=== PATIENT | female | born 1935 | race Caucasian/White ===

== ENCOUNTER → 2018-03-29 | Outpatient (CLI) | payer MEDICARE, OTHER ==
[~2018-03-29] MED LIST: ACTIGALL300 MG PO; ANTIVERT25 MG PO; ATENOLOL25 MG PO; CALCIUM + D SO1 EACH PO; CICLOPIROX6.6 ML TP; CLONAZEPAM0.5 MG PO; CRANBERRY TABL1 EACH PO; DECADRON1 MG PO; DECADRON2 MG PO; GINKGO BILOBA120 M1 PO; KEFLEX500 MG PO; LYRICA25 MG PO; MECLIZINE HCL25 MG PO; MIRALAX17 GM PO; OXYCODONE-ACET1 EACH PO; POLYETHYLENE GL17 GM PO; RED YEAST RICE600 M1 PO; RED YEAST RICE600 MG PO; TEGRETOL200 MG PO; TENORMIN25 MG PO; TOPIRAMATE25 MG PO; URSODIOL300 MG PO; VITAMIN B-650 M1 PO; VITAMIN B12-FO1 EACH PO; VITAMIN D31000 UNIT PO; ZOFRAN ODT4 MG PO; ZOLOFT50 MG PO
== END | disposition home or self-care (01) ==
LOC: CDC 11:30
DX: Z01.810 Encounter for preprocedural cardiovascular examination (principal); J98.4 Other disorders of lung; R94.31 Abnormal electrocardiogram [ECG] [EKG]
CPT/HCPCS: 93000

== ENCOUNTER 2018-05-01 23:14 | Inpatient (IN) | payer OTHER ==
[~2018-05-01] VITALS: Ht 157.5 cm; Wt 77.6 kg
[~2018-05-01 23:14] MED LIST changes: +CALCIUM 500 MG1 EACH PO; +CYANOCOBALAM1000 MCG PO
[2018-05-02 00:10] LABS: BASOPHIL (%) 0.3 % (0-1); EOSINOPHIL (%) 0.5 % (0-5); HEMATOCRIT 35.4 % (36.0-46.0); LYMPHOCYTE (%) 14.4 % (15-42); LYMPHOCYTE COUNT 0.9 K/uL (1.0-2.8); MCH 31.8 PG (29.0-34.0); MCHC 33.9 G/DL (30.0-36.0); MCV 93.9 FL (83-99); MONOCYTE (%) 6.7 % (3-12); MONOCYTE COUNT 0.4 K/uL (0-0.8); NEUTROPHIL (%) 77.1 % (45-76); NEUTROPHIL COUNT 4.7 K/uL (1.8-6.4); PLATELET COUNT 251 K/uL (156-360); RBC DIS.WIDTH-CV 12.5 % (11.8-14.6); RBC DIS.WIDTH-SD 43.3 % (39-53); RED BLOOD COUNT 3.77 M/uL (3.80-5.20); WHITE BLOOD COUNT 6.1 K/uL (4.1-10.2)
[2018-05-02 00:18] LABS: ALBUMIN 3.7 g/dL (3.2-4.8); CHLORIDE 104 mEq/L (99-109); POTASSIUM 4.7 mEq/L (3.7-5.4); SODIUM 137 mEq/L (136-147)
[2018-05-02 00:20] LABS: GLUCOSE 158 mg/dL (70-99); TOTAL PROTEIN 6.8 g/dL (6.4-8.3)
[2018-05-02 00:22] LABS: TOTAL BILIRUBIN 0.2 mg/dL (0.0-1.0)
[2018-05-02 00:24] LABS: ALKALINE PHOSPHATASE 82 IU/L (3-129); CREATININE 1.1 mg/dL (0.6-1.3); GFR ESTIMATE (CALCULATED) 51 mL/min/
[2018-05-02 00:25] LABS: UREA NITROGEN (BUN) 22 mg/dL (9-23)
[2018-05-02 00:26] LABS: AST (GOT) 21 IU/L (2-34)
[2018-05-02 00:27] LABS: ALT (GPT) 21 IU/L (3-49); LIPASE 492 U/L (1.0-51.0)
[2018-05-02] MEDS ORDERED: MULTIVITAMIN1 EAC2 PO (00:28)
[2018-05-02 00:30] LABS: TROP-I INTERPRETATION NEGATIVE; TROPONIN-I 0.07 ng/mL (0.0-0.30)
[2018-05-02] MEDS ORDERED: RISEDRONATE SOD35 M1 PO (00:33)
[2018-05-02 04:39] LABS: APPEARANCE SL.HAZY ((CLEAR)); BILIRUBIN NEGATIVE; BLOOD NEGATIVE; COLOR YELLOW ((YELLOW)); GLUCOSE (STRIP) NEGATIVE; KETONES NEGATIVE; LEUKOCYTES TRACE; NITRITE POSITIVE; PROTEIN (STRIP) NEGATIVE; SPECIFIC GRAVITY 1.013 (1.000-1.030); UROBILINOGEN 0.2 MG/DL (0.2-1.0)
[2018-05-02 04:42] LABS: BACTERIA 1+ /HPF; EPITHELIAL CELLS RARE /HPF; MUCUS TRACE /LPF; RED BLOOD CELLS 0-5 /HPF (0-5); UCUL ADDED? YES
[2018-05-02 06:42] VITALS: BP 154/69
[2018-05-02 11:03] VITALS: BP 133/79
[2018-05-02] MEDS ORDERED: BENADRYL25 MG PO (12:13)
[2018-05-02] MEDS ORDERED: CALCIUM 500 MG1 EACH PO (14:56)
[2018-05-02 15:23] VITALS: BP 176/74
[2018-05-02 19:45] VITALS: BP 162/74
[2018-05-02 23:57] VITALS: BP 140/78
[2018-05-03 03:54] VITALS: BP 136/70
[2018-05-03 05:55] LABS: HEMATOCRIT 32.5 % (36.0-46.0); HEMOGLOBIN 10.6 G/DL (11.9-15.5); MCH 31.2 PG (29.0-34.0); MCHC 32.6 G/DL (30.0-36.0); MCV 95.6 FL (83-99); PLATELET COUNT 251 K/uL (156-360); RBC DIS.WIDTH-CV 12.7 % (11.8-14.6); WHITE BLOOD COUNT 6.5 K/uL (4.1-10.2)
[2018-05-03 06:27] LABS: ALBUMIN 3.4 G/DL (3.2-4.8); ALKALINE PHOSPHATASE 68 IU/L (3-129); ALT (GPT) 27 IU/L (3-49); AST (GOT) 34 IU/L (2-34); CHLORIDE 105 MEQ/L (99-109); GFR ESTIMATE (CALCULATED) 56 mL/min/; GLUCOSE 121 mg/dL (70-99); POTASSIUM 4.3 MEQ/L (3.7-5.4); SODIUM 138 MEQ/L (136-147); TOTAL BILIRUBIN 0.4 MG/DL (0.0-1.0); TOTAL PROTEIN 6.1 G/DL (6.4-8.3); UREA NITROGEN (BUN) 21 mg/dL (9-23)
[2018-05-03 06:45] LABS: LIPASE 316 U/L (1.0-51.0)
[2018-05-03 08:56] VITALS: BP 159/72
[2018-05-03 12:40] VITALS: BP 168/92
[2018-05-03 16:51] VITALS: BP 159/92
[2018-05-03 19:46] VITALS: BP 160/92
[2018-05-04 00:53] VITALS: BP 140/86
[2018-05-04 04:18] VITALS: BP 142/90
[2018-05-04 06:19] LABS: HEMATOCRIT 30.1 % (36.0-46.0); MCH 31.3 PG (29.0-34.0); MCHC 33.2 G/DL (30.0-36.0); MCV 94.1 FL (83-99); PLATELET COUNT 220 K/uL (156-360); RBC DIS.WIDTH-CV 12.3 % (11.8-14.6); RBC DIS.WIDTH-SD 42.9 % (39-53); WHITE BLOOD COUNT 5.2 K/uL (4.1-10.2)
[2018-05-04 07:32] VITALS: BP 161/76
[2018-05-04 11:35] VITALS: BP 132/84
== END 2018-05-04 17:28 | disposition home or self-care (01) | DRG 689 ==
LOC: EME 23:14 → 5SOUTH 05-02 04:50 → EDOF 05-02 04:50 → ENRESERV 05-02 04:52 → 5SOUTH 05-02 06:13
PROVIDERS: Emergency Medicine; Hospitalist; Internal Medicine; Physician Assistant Medical
DX: N39.0 Urinary tract infection, site not specified (principal); K85.90 Acute pancreatitis without necrosis or infection, unspecified; G43.909 Migraine, unspecified, not intractable, without status migrainosus; I12.9 Hypertensive chronic kidney disease with stage 1 through stage 4 chronic kidney disease, or unspecified chronic kidney disease; N18.3 Chronic kidney disease, stage 3 (moderate); G40.909 Epilepsy, unspecified, not intractable, without status epilepticus; K59.09 Other constipation; M81.0 Age-related osteoporosis without current pathological fracture; F41.9 Anxiety disorder, unspecified; R73.9 Hyperglycemia, unspecified; B96.89 Other specified bacterial agents as the cause of diseases classified elsewhere; Z98.2 Presence of cerebrospinal fluid drainage device
CPT/HCPCS: 70450; 74176; 80053; 81003; 82948; 83690; 84484; 85025; 85027; 87077; 87086; 87186; 93005; 99281; 99285; C9113; J0696; J0780; J1170; J1200; J1644; J1885; J2270; J2405; J2765; J2930; J3010; J7030; J7040; J7120

== ENCOUNTER 2018-05-16 15:21 | Emergency (ER) | payer OTHER ==
[~2018-05-16] VITALS: Ht 157.5 cm; Wt 74.1 kg
[~2018-05-16 15:21] MED LIST changes: +BENADRYL25 MG PO; +MULTIVITAMIN1 EAC2 PO; +RISEDRONATE SOD35 M1 PO
[2018-05-16 17:13] LABS: BASOPHIL (%) 0.6 % (0-1); EOSINOPHIL COUNT 0.1 K/uL (0-0.3); HEMATOCRIT 32.3 % (36.0-46.0); IMMATURE GRANULOCYTE (%) 0.7 % (0.0-0.7); LYMPHOCYTE (%) 16.3 % (15-42); LYMPHOCYTE COUNT 1.2 K/uL (1.0-2.8); MCH 32.3 PG (29.0-34.0); MCHC 34.1 G/DL (30.0-36.0); MCV 94.7 FL (83-99); MONOCYTE (%) 7.7 % (3-12); MONOCYTE COUNT 0.6 K/uL (0-0.8); NEUTROPHIL (%) 73.7 % (45-76); NEUTROPHIL COUNT 5.3 K/uL (1.8-6.4); PLATELET COUNT 248 K/uL (156-360); RBC DIS.WIDTH-CV 12.9 % (11.8-14.6); RBC DIS.WIDTH-SD 44.7 % (39-53); RED BLOOD COUNT 3.41 M/uL (3.80-5.20); WHITE BLOOD COUNT 7.2 K/uL (4.1-10.2)
[2018-05-16 17:24] LABS: ALBUMIN 3.8 g/dL (3.2-4.8); CHLORIDE 105 mEq/L (99-109); POTASSIUM 4.2 mEq/L (3.7-5.4); SODIUM 141 mEq/L (136-147)
[2018-05-16 17:28] LABS: GLUCOSE 106 mg/dL (70-99); TOTAL BILIRUBIN 0.2 mg/dL (0.0-1.0); TOTAL PROTEIN 6.8 g/dL (6.4-8.3)
[2018-05-16 17:30] LABS: ALKALINE PHOSPHATASE 84 IU/L (3-129); CREATININE 1.1 mg/dL (0.6-1.3); GFR ESTIMATE (CALCULATED) 51 mL/min/
[2018-05-16 17:31] LABS: UREA NITROGEN (BUN) 21 mg/dL (9-23)
[2018-05-16 17:32] LABS: AST (GOT) 17 IU/L (2-34)
[2018-05-16 17:33] LABS: ALT (GPT) 17 IU/L (3-49)
[2018-05-16 17:39] LABS: LIPASE 28 U/L (1.0-51.0); TROP-I INTERPRETATION NEGATIVE; TROPONIN-I 0.02 ng/mL (0.0-0.30)
[2018-05-16 17:52] LABS: APPEARANCE CLEAR ((CLEAR)); BILIRUBIN NEGATIVE; BLOOD NEGATIVE; COLOR STRAW ((YELLOW)); GLUCOSE (STRIP) NEGATIVE; KETONES 5; LEUKOCYTES NEGATIVE; NITRITE NEGATIVE; PROTEIN (STRIP) NEGATIVE; SPECIFIC GRAVITY 1.008 (1.000-1.030); UCUL ADDED? NO; UROBILINOGEN 0.2 MG/DL (0.2-1.0)
[2018-05-16 18:53] LABS: CARBAMAZEPINE (TEGRETOL) 7.1 MCG/ML (4.0-12.0)
[2018-05-16 21:20] VITALS: BP 159/67
== END 2018-05-16 21:22 | disposition home or self-care (01) ==
LOC: EME 15:21
PROVIDERS: Emergency Medicine
DX: R42 Dizziness and giddiness (principal); I10 Essential (primary) hypertension; R10.10 Upper abdominal pain, unspecified; R11.0 Nausea; R19.7 Diarrhea, unspecified; G91.9 Hydrocephalus, unspecified; K44.9 Diaphragmatic hernia without obstruction or gangrene; K57.30 Diverticulosis of large intestine without perforation or abscess without bleeding; Z98.2 Presence of cerebrospinal fluid drainage device; Z86.73 Personal history of transient ischemic attack (TIA), and cerebral infarction without residual deficits; Z90.49 Acquired absence of other specified parts of digestive tract; Z90.710 Acquired absence of both cervix and uterus
CPT/HCPCS: 70450; 74176; 80053; 80156; 81003; 83690; 84484; 85025; 93005; 99281; 99285; J2405; J7030

== ENCOUNTER 2018-05-25 06:16 | Observation (INO) | payer OTHER ==
[~2018-05-25] VITALS: Ht 157.5 cm; Wt 71.6 kg
[~2018-05-25 06:16] MED LIST changes: +CALCIUM500 M4 PO
[2018-05-25 06:59] LABS: HEMATOCRIT 32.3 % (36.0-46.0); HEMOGLOBIN 11.2 G/DL (11.9-15.5); MCH 32.4 PG (29.0-34.0); MCHC 34.7 G/DL (30.0-36.0); MCV 93.4 FL (83-99); PLATELET COUNT 352 K/uL (156-360); RBC DIS.WIDTH-CV 12.5 % (11.8-14.6); RBC DIS.WIDTH-SD 42.7 % (39-53); RED BLOOD COUNT 3.46 M/uL (3.80-5.20); WHITE BLOOD COUNT 6.7 K/uL (4.1-10.2)
[2018-05-25 07:23] LABS: TROP-I INTERPRETATION NEGATIVE; TROPONIN-I 0.03 ng/mL (0.0-0.30)
[2018-05-25 07:32] LABS: ALBUMIN 3.9 G/DL (3.2-4.8); CHLORIDE 99 MEQ/L (99-109); POTASSIUM 3.8 MEQ/L (3.7-5.4); SODIUM 135 MEQ/L (136-147); TOTAL BILIRUBIN 0.3 MG/DL (0.0-1.0)
[2018-05-25 07:38] LABS: ALKALINE PHOSPHATASE 82 IU/L (3-129); ALT (GPT) 11 IU/L (3-49); AST (GOT) 15 IU/L (2-34); CREATININE 1.2 MG/DL (0.6-1.3); GFR ESTIMATE (CALCULATED) 46 mL/min/; GLUCOSE 128 mg/dL (70-99); LIPASE 57 U/L (1.0-51.0); TOTAL PROTEIN 6.8 G/DL (6.4-8.3); UREA NITROGEN (BUN) 21 mg/dL (9-23)
[2018-05-25 10:13] LABS: APPEARANCE CLEAR ((CLEAR)); BILIRUBIN NEGATIVE; BLOOD NEGATIVE; COLOR YELLOW ((YELLOW)); GLUCOSE (STRIP) NEGATIVE; KETONES 5; LEUKOCYTES NEGATIVE; NITRITE NEGATIVE; PROTEIN (STRIP) NEGATIVE; SPECIFIC GRAVITY 1.013 (1.000-1.030); UCUL ADDED? NO; UROBILINOGEN 0.2 MG/DL (0.2-1.0)
[2018-05-25 12:28] LABS: AMYLASE 101 IU/L (1-118)
[2018-05-25 12:47] LABS: THYROTROPIN (TSH) 2.5 MIU/L (0.4-5.5)
[2018-05-25] MEDS ORDERED: COZAAR50 MG PO (14:10)
[2018-05-25 17:41] VITALS: BP 162/70
[2018-05-25 21:30] VITALS: BP 172/80
[2018-05-26 00:29] VITALS: BP 148/66
[2018-05-26 04:46] VITALS: BP 135/64
[2018-05-26 05:41] LABS: HEMATOCRIT 30.2 % (36.0-46.0); MCH 31.6 PG (29.0-34.0); MCHC 33.1 G/DL (30.0-36.0); MCV 95.6 FL (83-99); PLATELET COUNT 328 K/uL (156-360); RED BLOOD COUNT 3.16 M/uL (3.80-5.20); WHITE BLOOD COUNT 5.4 K/uL (4.1-10.2)
[2018-05-26 06:15] LABS: ALBUMIN 3.3 G/DL (3.2-4.8); ALKALINE PHOSPHATASE 68 IU/L (3-129); ALT (GPT) 9 IU/L (3-49); AST (GOT) 12 IU/L (2-34); CHLORIDE 107 MEQ/L (99-109); CREATININE 1.2 MG/DL (0.6-1.3); GFR ESTIMATE (CALCULATED) 46 mL/min/; GLUCOSE 108 mg/dL (70-99); LIPASE 31 U/L (1.0-51.0); POTASSIUM 4.1 MEQ/L (3.7-5.4); SODIUM 139 MEQ/L (136-147); TOTAL BILIRUBIN 0.3 MG/DL (0.0-1.0); UREA NITROGEN (BUN) 16 mg/dL (9-23)
[2018-05-26 06:21] LABS: TOTAL PROTEIN 5.4 G/DL (6.4-8.3)
[2018-05-26 08:01] VITALS: BP 145/63
[2018-05-26 11:25] VITALS: BP 176/77
[2018-05-26] MEDS ORDERED: TYLENOL REGULA325 MG PO (11:49)
[2018-05-26] MEDS ORDERED: MAG-AL PLUS SUS30 ML PO (11:49)
[2018-05-26] MEDS ORDERED: PROTONIX40 MG PO (11:50)
[2018-05-26] MEDS ORDERED: CREON 241 CAPSULE PO (11:50)
[2018-05-26 16:24] VITALS: BP 132/62
== END 2018-05-26 17:16 | disposition home or self-care (01) ==
LOC: EME → EDBD 06:16 → EME 06:16 → EDOF 13:59 → ENRESERV 14:03 → EDOF 15:53 → 4SOUTH 17:03
PROVIDERS: Emergency Medicine; Internal Medicine
DX: K85.90 Acute pancreatitis without necrosis or infection, unspecified (principal); K44.9 Diaphragmatic hernia without obstruction or gangrene; G91.2 (Idiopathic) normal pressure hydrocephalus; Z98.2 Presence of cerebrospinal fluid drainage device; G40.909 Epilepsy, unspecified, not intractable, without status epilepticus; I10 Essential (primary) hypertension; F41.9 Anxiety disorder, unspecified; F32.9 Major depressive disorder, single episode, unspecified; Z90.49 Acquired absence of other specified parts of digestive tract; Z86.19 Personal history of other infectious and parasitic diseases; Z88.2 Allergy status to sulfonamides; Z91.041 Radiographic dye allergy status; Z88.0 Allergy status to penicillin; Z88.1 Allergy status to other antibiotic agents; Z88.5 Allergy status to narcotic agent; Z88.8 Allergy status to other drugs, medicaments and biological substances
CPT/HCPCS: 71045; 74176; 80048; 80053; 81003; 82150; 83605; 83690; 84443; 84443 GA; 84484; 85027; 87040; 93005; 99281; 99285; C9113; G0378; G8978 GP CJ; G8979 GP CH; G8980 CJ; J0360; J1650; J1885; J2405; J3010; J7030; J7042

== ENCOUNTER 2018-06-13 12:49 | Emergency (ER) | payer OTHER ==
[~2018-06-13] VITALS: Ht 157.5 cm; Wt 67.5 kg
[~2018-06-13 12:49] MED LIST changes: +COZAAR50 MG PO; +CREON 241 CAPSULE PO; +MAG-AL PLUS SUS30 ML PO; +PROTONIX40 MG PO; +TYLENOL REGULA325 MG PO
[2018-06-13 15:12] LABS: HEMATOCRIT 30.2 % (36.0-46.0); HEMOGLOBIN 10.4 G/DL (11.9-15.5); MCH 32.6 PG (29.0-34.0); MCHC 34.4 G/DL (30.0-36.0); MCV 94.7 FL (83-99); RBC DIS.WIDTH-CV 12.5 % (11.8-14.6); RBC DIS.WIDTH-SD 43.7 % (39-53); RED BLOOD COUNT 3.19 M/uL (3.80-5.20); WHITE BLOOD COUNT 12.4 K/uL (4.1-10.2)
[2018-06-13 15:18] LABS: ALBUMIN 3.6 g/dL (3.2-4.8)
[2018-06-13 15:19] LABS: CHLORIDE 100 mEq/L (99-109); SODIUM 134 mEq/L (136-147)
[2018-06-13 15:20] LABS: INTER. NORMALIZED RATIO 1.1
[2018-06-13 15:21] LABS: GLUCOSE 114 mg/dL (70-99); TOTAL PROTEIN 6.5 g/dL (6.4-8.3)
[2018-06-13 15:23] LABS: PTT 23.9 SEC (25-37); TOTAL BILIRUBIN 0.6 mg/dL (0.0-1.0)
[2018-06-13 15:24] LABS: ALKALINE PHOSPHATASE 90 IU/L (3-129)
[2018-06-13 15:25] LABS: CREATININE 1.2 mg/dL (0.6-1.3); GFR ESTIMATE (CALCULATED) 46 mL/min/
[2018-06-13 15:26] LABS: AST (GOT) 27 IU/L (2-34); UREA NITROGEN (BUN) 18 mg/dL (9-23)
[2018-06-13 15:27] LABS: ALT (GPT) 20 IU/L (3-49)
[2018-06-13 15:28] LABS: LIPASE 20 U/L (1.0-51.0)
[2018-06-13 15:30] LABS: TROP-I INTERPRETATION NEGATIVE; TROPONIN-I 0.03 ng/mL (0.0-0.30)
[2018-06-13 16:03] LABS: PLAT.SUFFICIENCY ADEQUATE
[2018-06-13 16:08] LABS: PLATELET COUNT 214 K/uL (156-360)
[2018-06-13 17:39] VITALS: BP 144/71
== END 2018-06-13 17:55 | disposition home or self-care (01) ==
LOC: EME 12:49
PROVIDERS: Emergency Medicine
DX: K92.1 Melena (principal); R10.13 Epigastric pain; K64.9 Unspecified hemorrhoids; I10 Essential (primary) hypertension; R56.9 Unspecified convulsions; M81.0 Age-related osteoporosis without current pathological fracture; F41.9 Anxiety disorder, unspecified; Z86.73 Personal history of transient ischemic attack (TIA), and cerebral infarction without residual deficits; Z90.49 Acquired absence of other specified parts of digestive tract; Z88.2 Allergy status to sulfonamides; Z88.0 Allergy status to penicillin; Z88.1 Allergy status to other antibiotic agents; Z88.5 Allergy status to narcotic agent; Z91.041 Radiographic dye allergy status
CPT/HCPCS: 80053; 83690; 84484; 85027; 85610; 85730; 86850; 86900; 86901; 93005; 99281; 99285; J3010